=== PATIENT | female | born 1980 | race African-American/Black ===

== ENCOUNTER 2016-07-16 13:11 | Emergency (ER) | payer OTHER ==
[~2016-07-16] VITALS: Ht 157.5 cm; Wt 78.0 kg
[~2016-07-16 13:11] MED LIST: BACTRIM DS TAB1 EACH PO; CIPROFLOXACIN500 M1 PO; KEFLEX500 MG PO; LOESTRIN1 EAC1 PO; LOESTRIN1 EACH PO; METHYLERGONOVI0.2 MG PO; NOHOMEMEDICATIONS; NORCO 5-325 TA1 EACH PO; PAXIL10 MG PO; PHENERGAN 25 MG25 M1 PO; ZOFRAN ODT4 MG DISSOLVE
[2016-07-16 13:40] LABS: ABSOLUTE NEUTROPHILS 4.2 thou/uL (1.4-8.2); BASOPHILS 0.7 % (0.0-2.0); EOSINOPHILS 0.8 % (0.0-3.0); HEMOGLOBIN 12.7 gm/dL (12.0-15.0); LYMPHOCYTES 37.4 % (24.0-44.0); MCH 27.2 pg (26.0-34.0); MCHC 33.5 % (28.0-37.0); MCV 81.2 fL (80.0-100.0); MONOCYTES 6.3 % (1.0-8.0); PLATELET COUNT 362 thou/uL (150-400); POLYS 54.8 % (36.0-66.0); RBC 4.68 mil/uL (4.20-5.00); RDW 13.2 % (10.5-14.5); WBC 7.6 thou/uL (4.0-11.0)
[2016-07-16 13:43] LABS: MANUAL DIFF NO
[2016-07-16 13:47] LABS: CALCIUM 9.1 mg/dL (8.5-10.1); POTASSIUM 3.4 mmol/L (3.5-5.1)
[2016-07-16 14:54] LABS: URINE BILIRUBIN NEGATIVE (Negative); URINE BLOOD TRACE (Negative); URINE COLOR YELLOW; URINE GLUCOSE-RANDOM* NEGATIVE (Negative); URINE KETONES NEGATIVE (Negative); URINE LEUKOCYTES-REFLEX 1+ (Negative); URINE PROTEIN (DIPSTICK) NEGATIVE (Negative); URINE SPECIFIC GRAVITY 1.025 (1.003-1.035); URINE UROBILINOGEN 0.2 E.U./dl (0.2-1.0)
[2016-07-16 15:00] LABS: CASTS None Seen /LPF (None Seen); CRYSTALS None Seen /LPF (None Seen); SQUAMOUS >10 Many /LPF (0-3); URINE RBC 0-2 Rare /HPF (0-2); URINE WBC-REFLEX 6-15 Few /HPF (0-5)
[2016-07-16] MEDS ORDERED: NORCO 5-325 TA1 EACH PO (15:33)
== END 2016-07-16 16:08 | disposition home or self-care (01) ==
LOC: ER 13:11
PROVIDERS: Emergency Medicine
DX: N35.9 Urethral stricture, unspecified (principal); N13.30 Unspecified hydronephrosis

== ENCOUNTER 2017-06-18 15:38 | Emergency (ER) | payer OTHER ==
[~2017-06-18] VITALS: Ht 160 cm; Wt 82.1 kg
[2017-06-18] MEDS ORDERED: MAGIC MOUTHWASH SWISH&SPIT (16:10)
[2017-06-18] MEDS ORDERED: MOBIC15 MG PO (16:10)
[2017-06-18] MEDS ORDERED: PENICILLIN VK500 M1 PO (16:10)
== END 2017-06-18 16:23 | disposition home or self-care (01) ==
LOC: ER 15:38
DX: J02.0 Streptococcal pharyngitis (principal); Z87.440 Personal history of urinary (tract) infections

== ENCOUNTER 2018-01-03 00:33 | Emergency (ER) | payer OTHER ==
[~2018-01-03] VITALS: Ht 162.6 cm; Wt 82.6 kg
[~2018-01-03 00:33] MED LIST changes: +MAGIC MOUTHWASH SWISH&SPIT; +MOBIC15 MG PO; +PENICILLIN VK500 M1 PO
[2018-01-03] MEDS ORDERED: BIRTH CONTROL (01:40)
[2018-01-03] MEDS ORDERED: IBUPROFEN 600600 M1 PO (01:56)
[2018-01-03] MEDS ORDERED: ULTRAM 50MG TAB50 MG PO (01:56)
== END 2018-01-03 02:02 | disposition home or self-care (01) ==
LOC: ER 00:33
DX: S20.219A Contusion of unspecified front wall of thorax, initial encounter (principal); M79.605 Pain in left leg; W01.0XXA Fall on same level from slipping, tripping and stumbling without subsequent striking against object, initial encounter; Y92.89 Other specified places as the place of occurrence of the external cause; Y93.E1 Activity, personal bathing and showering; Y99.8 Other external cause status